=== PATIENT | female | born 2005 | race Hispanic/Latino ===

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

== ENCOUNTER 2025-08-13 19:09 | Emergency (ER) | payer SELFPAY ==
[2025-08-13] MEDS ORDERED: diphenhydrAMINE 50 MG/ML VIAL ONE (19:41)
[2025-08-13] MEDS ORDERED: Acetaminophen 500 MG TAB ONE (19:41)
[2025-08-13] MEDS ORDERED: Metoclopramide HCl 10 MG (2 mL) VIAL ONE (19:42)
[2025-08-13] MEDS ORDERED: Ketorolac Tromethamine 30 MG (1 mL) VIAL ONE (19:42)
[2025-08-13] MEDS ORDERED: Dexamethasone 10 MG/ML VIAL ONE (19:56)
== END 2025-08-13 20:47 | disposition home or self-care (01) ==
LOC: ERS 19:09
DX: G43.909 Migraine, unspecified, not intractable, without status migrainosus (principal)
CPT/HCPCS: 93005; 96365; 96375; J1100; J1200; J1885; J2765